=== PATIENT | male | born 1990 | race Caucasian/White ===

== ENCOUNTER 2019-06-13 18:07 | Emergency (ER) | payer OTHER ==
[~2019-06-13] VITALS: Ht 188 cm; Wt 97.7 kg
[2019-06-13 18:15] VITALS: BP 160/88; TEMP 98.6
[2019-06-13] MEDS ORDERED: VALTREX 50500 MG/TAB PO (19:04)
[2019-06-13] MEDS ORDERED: BACTRIM DS 8001 TAB PO (19:33)
[2019-06-13 19:51] VITALS: PULSE 89
== END 2019-06-13 19:51 | disposition home or self-care (01) ==
LOC: COL.ER 18:07
DX: T63.301A Toxic effect of unspecified spider venom, accidental (unintentional), initial encounter (principal); L08.9 Local infection of the skin and subcutaneous tissue, unspecified; F12.90 Cannabis use, unspecified, uncomplicated